=== PATIENT | female | born 1970 | race Caucasian/White ===

== ENCOUNTER 2017-05-19 00:40 | Inpatient (IN) | payer MEDICAID ==
[~2017-05-19] VITALS: Ht 160 cm; Wt 82.6 kg
[2017-05-19 00:51] VITALS: BP 127/43
--- NOTE | 2017-05-19 01:34 | NUR ---
PT TAKEN TO BED 3
--- NOTE | 2017-05-19 01:36 | NUR ---
46 Y/O F W/C/O PAIN /REDNESS TO L LOWER LEG X YESTERDAY. PT STATES POSIBLE SPIDER BITE. REDNESS NOTED. DENIES ANY FEVER BUT STATES HAS HAD CHILLS. ER MADE AWARE.
[2017-05-19] MEDS ORDERED: NACL 0.9% 1,000 ML IV ONE (01:55)
[2017-05-19] MEDS ORDERED: CLINDAMYCIN 900 MG in DEXTROSE 5% 100 ML IV ONE (01:55)
[2017-05-19] MEDS ORDERED: CLINDAMYCIN 900 MG/6 ML VIAL IV ONE (02:04)
[2017-05-19 02:14] LABS: BASOPHILS # (AUTO) 0.2 K/uL (0.00-0.22); EOSINOPHILS # (AUTO) 0.8 K/uL (0-0.4); EOSINOPHILS % (AUTO) 11.2 % (0.0-4.0); HEMATOCRIT 26.6 % (36-48); HEMOGLOBIN 8.1 g/dL (12.0-16.0); LYMPHOCYTES # (AUTO) 1.9 K/uL (2.5-16.5); LYMPHOCYTES % (AUTO) 25.8 % (20.5-51.1); MEAN CORPUSCULAR HEMOGLOBIN 21 pg (27-31); MEAN CORPUSCULAR HGB CONC 31 g/dL (33-37); MEAN CORPUSCULAR VOLUME 70 fL (80-94); MONOCYTES # (AUTO) 0.8 K/uL (0.8-1.0); MONOCYTES % (AUTO) 10.3 % (1.7-9.3); NEUTROPHILS # (AUTO) 3.7 K/uL (1.8-7.7); NEUTROPHILS % (AUTO) 49.7 % (42.2-75.2); PLATELET COUNT (AUTO) 272 K/uL (140-450); RED BLOOD CELL COUNT(AUTO) 3.82 MIL/uL (4.20-5.40); RED CELL DISTRIBUTION WIDTH 17.1 % (11.6-13.7); WHITE BLOOD COUNT (AUTO) 7.4 K/uL (4.8-10.8)
[2017-05-19 02:31] LABS: ALBUMIN 3.4 g/dL (3.4-5.0); ANION GAP 13.4 (8-16); CARBON DIOXIDE 26.1 mmol/L (21-32); CREATININE 0.7 mg/dL (0.6-1.3); POTASSIUM 3.5 mmol/L (3.5-5.1); TOTAL BILIRUBIN 0.3 mg/dL (0.0-1.0)
--- NOTE | 2017-05-19 02:35 | NUR ---
PT RESTING IN BED ASLEEP, NO S/S OF DISTRESS NOTED. AWATING FOR RESULTS.
[2017-05-19] MEDS: NACL 0.9% 1,000 ML IV SCH (03:51)
[2017-05-19] MEDS ORDERED: ACETAMINOPHEN 325 MG TAB PO PRN (03:55)
[2017-05-19] MEDS ORDERED: ONDANSETRON 4 MG/2 ML VIAL IVP PRN (03:55)
[2017-05-19] MEDS ORDERED: HYDROcodone/APAP 7.5/325 MG 1 TAB PO PRN (03:55)
[2017-05-19 04:00] VITALS: BP 115/62
--- NOTE | 2017-05-19 04:12 | NUR ---
PT TAKEN TO TELEMETRY VIA [facility]. NO S/S OF DISTRESS NOTED DURING TRANSFER.
--- NOTE | 2017-05-19 04:18 | NUR ---
REPORT GIVEN TO MIROSLAVA BABIN AT BEDSIDE.
--- NOTE | 2017-05-19 04:30 | NUR ---
RECEIVED PT FROM ER IN STABLE CONDITION. AAOX4 ON ROOM AIR, PT IS LETHARGIC AND SEDATED BUT STILL ANSWERS QUESTIONS. IV TO L HAND 20G PATENT AND INTACT INFUSING WELL. RESPIRATIONS EVEN AND UNLABORED, SKIN WARM AND DRY TO TOUCH, CELLULITIS ON L LEG, SMALL AREA OF REDNESS NOTED. INITIAL ASSESSMENT COMPLETED, PLAN OF CARE DISCUSSED WITH PT, ALL SAFETY PRECAUTIONS MET, CALL LIGHT WITHIN REACH, WILL CONTINUE TO MONITOR
[2017-05-19 04:38] LABS: CHOL/HDL RATIO 4.1 (1-4.5); FREE T4 (FREE THYROXINE) 0.87 ng/dL (0.76-1.46); MAGNESIUM 1.9 mg/dL (1.8-2.4); PHOSPHORUS 3.8 mg/dL (2.5-4.9); THYROID STIMULATING HORMONE 3.3 uIU/mL (0.34-3.74)
--- NOTE | 2017-05-19 04:45 | NUR ---
DR. RESENDIZ IN TO SEE PT, COMPUTERS ARE DOWN SO HE STATED NO ORDERS FOR NOW
--- NOTE | 2017-05-19 07:25 | NUR ---
REPORT GIVEN TO DAY NURSE FOR CONTINUITY OF CARE. PT IN STABLE CONDITION. IV PATENT AND INTACT, NO REDNESS OR SWELLING
--- NOTE | 2017-05-19 07:25 | NUR ---
RECIEVED REPORT FOR CONTINUITY OF CARE AT BEDSIDE FROM MANAGER WILLOW NURSE. PT IN BED WITH EYES CLOSED. RESP EVEN AND UNLABORED. NO ACUTE DISTRESS NOTED. IV SITE TO LEFT HAND WITH 20G FLUIDS NS @50CC/HR. PT WITH CELLULITIS TO LLE.WILL CONT TO MONITOR PT.
[2017-05-19 08:00] VITALS: BP 118/79
[2017-05-19] MEDS: LACTOBACILLUS RHAMNOSUS GG 1 EACH CAP PO SCH (08:54)
[2017-05-19] MEDS: DOCUSATE SODIUM 100 MG GELCAP PO SCH ×2 (08:54→21:00)
[2017-05-19] MEDS: ATORVASTATIN 20 MG TAB PO SCH (08:54)
--- NOTE | 2017-05-19 08:58 | NUR ---
ADMINISTERED SCHEDULED MEDICATION. PATIENT TOLERATED WELL. NO ACUTE DISTRESS. PT HAVING BREAKFAST.CALL LIGHT WITHIN REACH, WILL CONT TO MONITOR PT.
[2017-05-19 09:26] LABS: PROTHROMBIN TIME 9.3 secs (10.8-13.4)
--- NOTE | 2017-05-19 09:42 | NUR ---
PATIENT HAS BEEN SCREENED AND CATEGORIZED LOW NUTRITION RISK. PATIENT WILL BE SEEN WITHIN 7 DAYS OF ADMISSION. 05/25/[address]
--- NOTE | 2017-05-19 10:30 | NUR ---
PATIENT ALERT ABLE ANSWER QUESTIONS APPROPRIATELY. DROWSY BUT COHERENT. NO ACUTE DISTRESS. NO CO PAIN . CALL LIGHT WITHIN REACH, WILL CONT TO MONITOR PT.
--- NOTE | 2017-05-19 10:47 | NUR ---
PT SLEEPING. NO SIGNS OF DISTRESS. WILL CONTINUE TO MONITOR PT.
--- NOTE | 2017-05-19 11:02 | NUR ---
REMOVED STOCK PITCHER . PT RESTING COMFORTABLY . NO ACUTE DISTRESS NOTED. WILL CONT TO MONITOR PT.
--- NOTE | 2017-05-19 11:27 | NUR ---
CM NOTE PER SIGN LETTERER CAMPOS, SEND REVIEWS TO BOTH [facility] AND [facility]. INITIAL REVIEW FAXED TO [facility] [phone] PH# [phone] AND [phone] [place] PH# [phone].
[2017-05-19] MEDS ORDERED: FERROUS GLUCONATE 324 MG TAB PO SCH (12:00)
[2017-05-19] MEDS ORDERED: ASCORBIC ACID 500 MG TAB PO SCH (12:00)
[2017-05-19] MEDS: CLINDAMYCIN 600 MG in DEXTROSE 5% 50 ML IV SCH ×2 (12:44→21:42)
--- NOTE | 2017-05-19 12:45 | NUR ---
ADMINISTERED CLEOCIN AND SCHEDULED MEDICATION , PT TOLERATED WELL. PATIENT IN BED HAVING LUNCH. NO ACUTE DISTRESS NOTED. NO C/O PAIN . WILL CONT TO MONITOR PT.
--- NOTE | 2017-05-19 14:45 | NUR ---
PATIENT IN BED WITH EYES CLOSED EASILY AROUSABLE. RESPONDS APPROPRIATELY TO QUESTIONS. NO ACUTE DISTRESS. NO C/O PAIN OR DISCOMFORT. CALL LIGHT WITHIN REACH. WILL CONT TO MONITOR
[2017-05-19 16:00] VITALS: BP 118/63
--- NOTE | 2017-05-19 16:00 | NUR ---
GATHERED VITAL SIGNS. PT WITH EYES CLOSED BUT EASILY AWOKEN. RESPONDS APPROPRIATELY TO QUESTIONS. NO ACUTE DISTRESS NOTED. NO C/O PAIN . WILL CONT TO MONITOR PT.
--- NOTE | 2017-05-19 18:04 | NUR ---
PT RESTING QUIETLY IN BED. NO ACUTE DISTRESS NOTED. NO C/O PAIN . WILL CONT TO MONITOR PT.
--- NOTE | 2017-05-19 19:09 | NUR ---
ENDORSED REPORT TO GLASS WASHER NURSE AT BEDSIDE FOR CONTINUITY OF CARE.
--- NOTE | 2017-05-19 19:10 | NUR ---
RECD. RESTING IN BED, AWAKE, A/OX4. RESPIRATION EVEN AND UNLABORED. IV OF NS AT 50 ML/HR INFUSING, LEFT HAND G20, CONVERSING WITH VISITORS AT THE BEDSIDE. STILL WITH SLIGHT SWELLING AND REDNESS AT THE LOWER LEG BUT SIZE OF REDNESS IS DECREASING. PLAN OF CARE FOR THE SHIFT DISCUSSED. VERBALIZED UNDERSTANDING. DENIES PAIN 0/10.
--- NOTE | 2017-05-19 20:00 | NUR ---
Patient's Plan of Care was discussed and reviewed with IC DESIGNER CUSTOM: DEBBY
--- NOTE | 2017-05-19 21:00 | NUR ---
REFUSED COLACE, STATED NO PROBLEM WITH HAVING BM DAILY.
[2017-05-19] MEDS ORDERED: ZOLPIDEM 5 MG TAB PO SCH (23:35)
[2017-05-20] VITALS: BP 117/69
--- NOTE | 2017-05-20 00:19 | NUR ---
UNABLE TO SLEEP, MEDICATED WITH AMBIEN ORDERED.
[2017-05-20] MEDS: NACL 0.9% 1,000 ML IV SCH (00:20)
--- NOTE | 2017-05-20 01:20 | NUR ---
SLEEPING COMFORTABLY IN BED.
--- NOTE | 2017-05-20 04:00 | NUR ---
STILL SLEEPING COMFORTABLY.
[2017-05-20] MEDS: CLINDAMYCIN 600 MG in DEXTROSE 5% 50 ML IV SCH (04:43)
[2017-05-20 06:59] LABS: BASOPHILS # (AUTO) 0.1 K/uL (0.00-0.22); BASOPHILS % (AUTO) 1.9 % (0.0-2.0); EOSINOPHILS # (AUTO) 0.7 K/uL (0-0.4); EOSINOPHILS % (AUTO) 12.6 % (0.0-4.0); HEMATOCRIT 28.2 % (36-48); HEMOGLOBIN 8.6 g/dL (12.0-16.0); LYMPHOCYTES # (AUTO) 2.4 K/uL (2.5-16.5); LYMPHOCYTES % (AUTO) 41.6 % (20.5-51.1); MEAN CORPUSCULAR HEMOGLOBIN 21 pg (27-31); MEAN CORPUSCULAR HGB CONC 30 g/dL (33-37); MEAN CORPUSCULAR VOLUME 71 fL (80-94); MONOCYTES # (AUTO) 0.5 K/uL (0.8-1.0); MONOCYTES % (AUTO) 8.5 % (1.7-9.3); NEUTROPHILS % (AUTO) 35.4 % (42.2-75.2); PLATELET COUNT (AUTO) 248 K/uL (140-450); RED CELL DISTRIBUTION WIDTH 17.5 % (11.6-13.7); WHITE BLOOD COUNT (AUTO) 5.7 K/uL (4.8-10.8)
--- NOTE | 2017-05-20 07:00 | NUR ---
CONDITION REMAIN STABLE. WILL ENDORSE TO AM NURSE FOR CONTINUITY OF CARE.
[2017-05-20 07:10] LABS: ANION GAP 11.7 (8-16); CARBON DIOXIDE 25.3 mmol/L (21-32); CREATININE 0.6 mg/dL (0.6-1.3)
[2017-05-20 07:22] LABS: MAGNESIUM 1.8 mg/dL (1.8-2.4); PHOSPHORUS 3.6 mg/dL (2.5-4.9)
--- NOTE | 2017-05-20 07:30 | NUR ---
RECEIVED PT REPORT FROM MERCURY CRACKING TESTER NURSE. PT IS AAOX4, RESTING IN BED. RESPIRATION EVEN AND UNLABORED. DENIES PAIN AT THIS TIME. IV CATH NOTED TO THE LEFT HAND, 20G, NS AT 50 ML/HR, PATENT, INTACT, AND INFUSING WELL. LEFT LOWER LEG IS SWELLING AND REDNESS AT THE SITE CIRCLED BY MARKER. PLAN OF CARE DISCUSSED WITH PT. PT VERBALIZED UNDERSTANDING. WILL CONTINUE TO MONITOR.
[2017-05-20] MEDS ORDERED: FERROUS GLUCONATE 324 MG TAB PO SCH (08:00)
[2017-05-20] MEDS: ATORVASTATIN 20 MG TAB PO SCH (08:29)
[2017-05-20] MEDS: LACTOBACILLUS RHAMNOSUS GG 1 EACH CAP PO SCH (08:29)
[2017-05-20] MEDS: DOCUSATE SODIUM 100 MG GELCAP PO SCH (08:30)
--- NOTE | 2017-05-20 08:35 | NUR ---
MEDICATIONS GIVEN. PT IS COOPERATIVE. DENIES ANY PAIN AT THIS TIME. NO S/S OF DISTRESS NOTED.
[2017-05-20] MEDS ORDERED: IBUP-2213 PO (08:54)
[2017-05-20] MEDS ORDERED: DOCU-299 PO (08:54)
[2017-05-20] MEDS ORDERED: OMEP20TC12 PO (08:54)
[2017-05-20] MEDS ORDERED: FERR324T11 PO (08:54)
[2017-05-20] MEDS ORDERED: LACT10CA PO (08:54)
[2017-05-20] MEDS ORDERED: VITC500 PO (08:54)
[2017-05-20] MEDS ORDERED: CLIN300C5 PO (08:54)
[2017-05-20] MEDS ORDERED: ATOR20TA40 PO (08:54)
[2017-05-20] MEDS ORDERED: ASCORBIC ACID 500 MG TAB PO SCH (09:00)
--- NOTE | 2017-05-20 10:36 | NUR ---
CM NOTE CONCURRENT REVIEW AND DISCHARGE SUMMARY FAXED TO [facility] [phone] PH# [phone] AND TO [facility] [phone] [place] PH# [phone]. [facility] CARLI ATKINS INFORMED THAT THERE IS A DISCHARGE ORDER FOR PATIENT TODAY.
--- NOTE | 2017-05-20 12:00 | NUR ---
PT IS DISCHARGED PER MD ORDER. DISCHARGE INSTRUCTIONS AND MEDICATION TEACHING GIVEN. PT VERBALIZED UNDERSTANDING. IV DC'ED, TIP INTACT, PRESSURE APPLIED. PT DENIES PAIN, NAUSEA, AND VOMITING. PT STATED SWELLING ON THE LEFT LEG HAS GOTTEN A LOT BETTER BUT STILL FEEL LIKE SWELLING AND PRESSURE. INSTRUCT PT TO ELEVATED THE LEG AT HOME TO INCREASE VENOUS RETURN AND WARM COMPRESS TO INCREASE BLOOD CIRCULATION. PT LEFT IN STABLE CONDITION AND WITH ALL HER BELONGINGS. WALKED PT TO THE LOBBY.
[2017-05-20 15:41] LABS: FOLIC ACID 13.4 ng/mL (>3.0)
== END 2017-05-20 12:00 | disposition home or self-care (01) | DRG 383 ==
LOC: MED 00:40 → MTU 04:01
PROVIDERS: ADMIT Family Medicine; ATTEND Family Medicine
DX: L03.116 Cellulitis of left lower limb (principal); N17.0 Acute kidney failure with tubular necrosis; G92 Toxic encephalopathy; D50.9 Iron deficiency anemia, unspecified; I11.9 Hypertensive heart disease without heart failure; E11.9 Type 2 diabetes mellitus without complications; T43.621A Poisoning by amphetamines, accidental (unintentional), initial encounter; I42.9 Cardiomyopathy, unspecified; F17.210 Nicotine dependence, cigarettes, uncomplicated; E78.5 Hyperlipidemia, unspecified; F19.10 Other psychoactive substance abuse, uncomplicated; K21.9 Gastro-esophageal reflux disease without esophagitis; F15.90 Other stimulant use, unspecified, uncomplicated; J45.909 Unspecified asthma, uncomplicated; E66.9 Obesity, unspecified; Z68.32 Body mass index [BMI] 32.0-32.9, adult; Z91.041 Radiographic dye allergy status; Y92.89 Other specified places as the place of occurrence of the external cause
CPT/HCPCS: 36415; 71045; 76881; 80048; 80053; 82150; 82607; 82728; 82746; 83036; 83540; 83605; 83690; 83735; 83880; 84100; 84439; 84443; 84484; 85025; 85045; 85610; 85730; 87040; 87081; 93005; 96365; 99285; J3490; J7030; J7060; Q0092

== ENCOUNTER 2017-08-05 18:51 | Emergency (ER) | payer MEDICAID ==
[~2017-08-05] VITALS: Ht 162.6 cm; Wt 84.8 kg
[~2017-08-05 18:51] MED LIST: ATOR20TA40 PO; CLIN300C5 PO; DOCU-299 PO; FERR324T11 PO; IBUP-2213 PO; LACT10CA PO; OMEP20TC12 PO; VITC500 PO
[2017-08-05 18:56] VITALS: BP 141/79
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
--- NOTE | 2017-08-05 19:20 | NUR ---
MOVED TO ER BED 2
[2017-08-05] MEDS ORDERED: KETOROLAC 60 MG/2 ML VIAL IM ONE (19:55)
[2017-08-05 20:09] VITALS: BP 135/78
--- NOTE | 2017-08-05 20:09 | NUR ---
Patient discharged with v/s stable. Written and verbal after care instructions given and explained. Patient alert, oriented and verbalized understanding of instructions. Ambulatory with steady gait. All questions addressed prior to discharge. ID band removed. Patient advised to follow up with PMD. Rx of MOTRIN, CIPRO given. Patient educated on indication of medication including possible reaction and side effects. Opportunity to ask questions provided and answered.
== END 2017-08-05 20:09 | disposition home or self-care (01) ==
LOC: MED 18:51
DX: N39.0 Urinary tract infection, site not specified (principal); M54.6 Pain in thoracic spine; J45.909 Unspecified asthma, uncomplicated; F17.210 Nicotine dependence, cigarettes, uncomplicated; Z91.041 Radiographic dye allergy status; Z79.899 Other long term (current) drug therapy
CPT/HCPCS: 81002; 81025; 96372; 99283; J1885

== ENCOUNTER 2017-12-30 22:39 | Emergency (ER) | payer MEDICAID ==
[~2017-12-30] VITALS: Ht 162.6 cm; Wt 89.4 kg
[2017-12-30 22:46] VITALS: BP 115/70
[2017-12-30 22:48] VITALS: BP 115/70
--- NOTE | 2017-12-30 22:49 | NUR ---
TO LOBBY, A/W JIGNA SALDANA, CB ERMD NOTED
--- NOTE | 2017-12-30 23:57 | NUR ---
47/F CAME IN W C/O LEFT FOOT AND LEG PAIN X 2 DAYS. LEFT FOOT AND LEG NOTED WITH REDNESS, +EDEMA, +TENDERNESS, SKIN IS INTACT, +CMS TO LLE. PT REPORTS " MIGHT BE A BUG BITE". DENIES PMH
--- NOTE | 2017-12-30 23:57 | NUR ---
TO ER BED 8
[2017-12-31] MEDS ORDERED: KETOROLAC 30 MG/ML VIAL IM ONE (00:15)
[2017-12-31] MEDS ORDERED: CLINDAMYCIN 600 MG/4 ML VIAL IM ONE (00:15)
--- NOTE | 2017-12-31 00:15 | NUR ---
UA DONE, HCG NEG
== END 2017-12-31 00:55 | disposition home or self-care (01) ==
LOC: MED 22:39
DX: L03.116 Cellulitis of left lower limb (principal); J45.909 Unspecified asthma, uncomplicated; F17.210 Nicotine dependence, cigarettes, uncomplicated; Z88.8 Allergy status to other drugs, medicaments and biological substances; Z79.899 Other long term (current) drug therapy
CPT/HCPCS: 81002; 81025; 96372; 99284; J1885; J3490

== ENCOUNTER 2018-11-16 03:10 | Emergency (ER) | payer MEDICAID ==
[~2018-11-16] VITALS: Ht 162.6 cm; Wt 94.8 kg
[2018-11-16 03:16] VITALS: BP 127/68
--- NOTE | 2018-11-16 03:26 | NUR ---
PT AMBULATED TO WITH STEADY GAIT TO PROVIDE URINE SAMPLE. INSTRUCTED TO GO TO BED 5 FINISHED.
[2018-11-16] MEDS ORDERED: KETOROLAC 60 MG/2 ML VIAL IM ONE (03:35)
--- NOTE | 2018-11-16 03:35 | NUR ---
48 Y/O FEMALE PRESENTS TO ED, C/O LLQ ACHING, PRESSURE PAIN 8/10. PT STATES PAIN STARTED 5 DAYS AGO. C/O NAUSEA FOR THE PAST 2 DAYS. PT HAS ACTIVE BOWEL SOUNDS ON ALL QUADRANTS. ABDOMEN IS SOFT AND NO DISTENTION. PT C/O OF PRESSURED LLQ PAIN DURING BOWEL MOVEMENTS AND VOIDING. DENIES ANY FOUL ODOR OR BURNING SENSATION WHILE VOIDING. PT HAS HX OF ASTHMA. PT VSS. DR KOENIG AWARE. WILL CONTINUE TO MONITOR.
--- NOTE | 2018-11-16 04:14 | NUR ---
Ultrasound at bedside.
--- NOTE | 2018-11-16 05:02 | NUR ---
Note undone in EDM - 11/16/18 at 0508 by MED2 PT DISCHARGED WITH PAPERWORK. RX HYDROCHLOROTHIAZIDE AND EQUATE SALINE 0.65% NASAL SPRAY. EDUCATED PT REGARDING MEDICATIONS AND SIDE EFFECTS. EDUCATED PT REGARDING DISCHARGE DIAGNOSIS. PT VERBALIZED UNDERSTANDING OF TEACHING. TOLD PT TO FOLLOW UP WITH PCP AND WHEN TO RETURN TO ED. PT VSS. ALL QUESTIONS ANSWERED.
[2018-11-16] MEDS ORDERED: AZITHROMYCIN 250 MG TAB PO ONE (05:10)
[2018-11-16] MEDS ORDERED: cefTRIAXone 250 MG in LIDOCAINE MPF 1% - 5 mL VIAL 0.9 ML IM ONE (05:10)
[2018-11-16 05:35] VITALS: BP 121/66
--- NOTE | 2018-11-16 05:35 | NUR ---
PT DISCHARGED WITH PAPERWORK. RX DOXYCYLINE, MOTRIN, TRAMADOL. EDUCATED PT REGARDING MEDICATIONS AND SIDE EFFECTS. EDUCATED PT REGARDING DISCHARGE DIAGNOSIS. PT VERBALIZED UNDERSTANDING OF TEACHING. TOLD PT TO FOLLOW UP WITH PCP AND WHEN TO RETURN TO ED. PT VSS. ALL QUESTIONS ANSWERED.
== END 2018-11-16 05:35 | disposition home or self-care (01) ==
LOC: MED 03:10
DX: N70.11 Chronic salpingitis (principal); R11.2 Nausea with vomiting, unspecified; J45.909 Unspecified asthma, uncomplicated; Z79.899 Other long term (current) drug therapy
CPT/HCPCS: 76856; 81002; 81025; 96372; 99284; J0696; J1885; J2001; Q0092

== ENCOUNTER 2018-11-19 20:52 | Emergency (ER) | payer MEDICAID ==
[~2018-11-19] VITALS: Ht 162.6 cm; Wt 93.0 kg
[2018-11-19 20:58] VITALS: BP 132/76
--- NOTE | 2018-11-19 21:06 | NUR ---
PT AMBULATED TO THE RESTROOM AND THEN TO BED #10
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
--- NOTE | 2018-11-19 21:25 | NUR ---
Patient discharged with v/s stable. Written and verbal after care instructions given and explained. Patient alert, oriented and verbalized understanding of instructions. Ambulatory with steady gait. All questions addressed prior to discharge. ID band removed. Patient advised to follow up with PMD. Rx of doxcycline given. Patient educated on indication of medication including possible reaction and side effects. Opportunity to ask questions provided and answered.
== END 2018-11-19 21:25 | disposition home or self-care (01) ==
LOC: MED 20:52
DX: N73.9 Female pelvic inflammatory disease, unspecified (principal); F17.200 Nicotine dependence, unspecified, uncomplicated; J45.909 Unspecified asthma, uncomplicated; Z76.0 Encounter for issue of repeat prescription; Z98.890 Other specified postprocedural states; Z79.899 Other long term (current) drug therapy; Z88.8 Allergy status to other drugs, medicaments and biological substances
CPT/HCPCS: 99283

== ENCOUNTER 2019-11-24 13:14 | Emergency (ER) | payer MEDICAID ==
[~2019-11-24] VITALS: Ht 162.6 cm; Wt 93.0 kg
[2019-11-24 13:27] VITALS: BP 128/63
--- NOTE | 2019-11-24 13:30 | NUR ---
Nemesio irene in EDM - 11/24/19 at 1359 by [email or web address] 49/F BIB SELF C/O LEFT THIGH PAIN, REDNESS & SWELLING S/P POSSIBLE SPIDER BITE X YESTERDAY. MED HX: ASTHMA.
--- NOTE | 2019-11-24 13:34 | NUR ---
PT AMB TO BED 12
--- NOTE | 2019-11-24 13:58 | NUR ---
49/F C/O BURNING LEFT LATERAL THIGH PAIN, REDNESS & SWELLING S/P BUG BITE/STING X YESTERDAY. +PRURITIS. NO SOB/CP. STATES MILD NAUSEA TODAY. MED HX: ASTHMA
--- NOTE | 2019-11-24 14:38 | NUR ---
DR TONEY AT BEDSIDE
[2019-11-24] MEDS ORDERED: diphenhydrAMINE 50 MG/ML VIAL IVP ONE (14:40)
[2019-11-24] MEDS ORDERED: ceFAZolin 1,000 MG VIAL ONE (14:58)
[2019-11-24 15:04] LABS: BASOPHILS % (AUTO) 0.4 % (0.0-2.0); EOSINOPHILS # (AUTO) 0.4 K/uL (0-0.4); EOSINOPHILS % (AUTO) 6.5 % (0.0-4.0); HEMATOCRIT 26.3 % (36-48); HEMOGLOBIN 8.1 g/dL (12.0-16.0); LYMPHOCYTES # (AUTO) 1.3 K/uL (2.5-16.5); LYMPHOCYTES % (AUTO) 20.6 % (20.5-51.1); MEAN CORPUSCULAR HEMOGLOBIN 21 pg (27-31); MEAN CORPUSCULAR HGB CONC 31 g/dL (33-37); MEAN CORPUSCULAR VOLUME 69.4 fL (80-94); MONOCYTES # (AUTO) 0.6 K/uL (0.8-1.0); MONOCYTES % (AUTO) 9.2 % (1.7-9.3); NEUTROPHILS % (AUTO) 63.3 % (42.2-75.2); PLATELET COUNT (AUTO) 240 K/uL (140-450); RED BLOOD CELL COUNT(AUTO) 3.79 MIL/uL (4.20-5.40); RED CELL DISTRIBUTION WIDTH 18.3 % (11.6-13.7); WHITE BLOOD COUNT (AUTO) 6.4 K/uL (4.8-10.8)
[2019-11-24 15:20] LABS: ALBUMIN 3.5 g/dL (3.4-5.0); ANION GAP 12.2 (8-16); CARBON DIOXIDE 26.4 mmol/L (21-32); CREATININE 0.8 mg/dL (0.6-1.3); POTASSIUM 3.6 mmol/L (3.5-5.1); TOTAL BILIRUBIN 0.3 mg/dL (0.0-1.0)
[2019-11-24 17:18] VITALS: BP 116/75
== END 2019-11-24 17:18 | disposition home or self-care (01) ==
LOC: MED 13:14
DX: S60.562A Insect bite (nonvenomous) of left hand, initial encounter (principal); D64.9 Anemia, unspecified; L03.114 Cellulitis of left upper limb; J45.909 Unspecified asthma, uncomplicated; N83.299 Other ovarian cyst, unspecified side; Z88.6 Allergy status to analgesic agent; Z79.899 Other long term (current) drug therapy
CPT/HCPCS: 36415; 80053; 85025; 96365; 96375; 99284; J0690; J1200

== ENCOUNTER 2020-02-23 10:27 | Emergency (ER) | payer MEDICAID ==
[~2020-02-23] VITALS: Ht 160 cm; Wt 94.3 kg
[2020-02-23 10:34] VITALS: BP 151/81
--- NOTE | 2020-02-23 10:34 | NUR ---
Patient ambulated to bed 12. RN evaluating patient at bedside.
--- NOTE | 2020-02-23 10:41 | NUR ---
49 y/o female A&OX4 c/o left eye discomfort and discharge X3days. Pt states she has used visine eyedrops with no relief. Pt states left eye is itchy. Denies vision loss. Perrla + in both eyes, brisk, 6mm. Pt also states right ear is itchy and has affected her hearing. Denies PMH, RX Allergies to iodine.
--- NOTE | 2020-02-23 10:52 | NUR ---
Dr. Evans at the pt bedside for evaluation.
[2020-02-23 11:07] VITALS: BP 151/81
--- NOTE | 2020-02-23 11:07 | NUR ---
Patient discharged with v/s stable. Written and verbal after care instructions given and explained. Patient alert, oriented and verbalized understanding of instructions. Ambulatory with steady gait. All questions addressed prior to discharge. ID band removed. Patient advised to follow up with PMD. Rx of cortisporin oral suspension 4drops QID in right ear, and gentamycin 0.3% ophthalmic ey drops 1 ribbon TID PRN given. Patient educated on indication of medication including possible reaction and side effects. Opportunity to ask questions provided and answered.
== END 2020-02-23 11:07 | disposition home or self-care (01) ==
LOC: MED 10:27
DX: H10.32 Unspecified acute conjunctivitis, left eye (principal); H66.91 Otitis media, unspecified, right ear; F17.200 Nicotine dependence, unspecified, uncomplicated; J45.909 Unspecified asthma, uncomplicated; Z71.6 Tobacco abuse counseling; Z79.899 Other long term (current) drug therapy; Z88.8 Allergy status to other drugs, medicaments and biological substances
CPT/HCPCS: 99283

== ENCOUNTER 2020-07-14 01:38 | Emergency (ER) | payer MEDICAID ==
[~2020-07-14] VITALS: Ht 162.6 cm; Wt 81.6 kg
[~2020-07-14 01:38] MED LIST changes: -CLIN300C5 PO; +CLIN300C7 PO
[2020-07-14 01:45] VITALS: BP 150/79
--- NOTE | 2020-07-14 01:45 | NUR ---
TO BED AMBULATORY
--- NOTE | 2020-07-14 02:00 | NUR ---
C/O LT LEG PAIN X 3 DAYS. PT SAYS, "I GOT BITE BY A BUG 3 DAYS AGO AND IT STARTED GETTING SWOLLEN AND PAINFUL TODAY." LT LEG SHOWS REDNESS, SWELLING, TENDERNESS TO TOUCH. CMS INTACT, PEDAL PULSES PRESENT BLE. SKIN IS HOT TO TOUCH ON LT LEG. A&OX4. STEADY GAIT. ALLERGIES: IODINE PMH: ASTHMA.
[2020-07-14] MEDS ORDERED: cephALEXin 500 MG CAP PO ONE (02:40)
[2020-07-14] MEDS ORDERED: CEPH500C16 PO (02:59)
[2020-07-14] MEDS ORDERED: CIPR7.5S OT (03:11)
[2020-07-14 03:19] VITALS: BP 140/76
--- NOTE | 2020-07-14 03:19 | NUR ---
Patient discharged with v/s stable. Written and verbal after care instructions given and explained. Patient alert, oriented and verbalized understanding of instructions. Ambulatory with steady gait. All questions addressed prior to discharge. ID band removed. Patient advised to follow up with PMD. Rx of KEFLEX, AND CIPRODEX given. Patient educated on indication of medication including possible reaction and side effects. Opportunity to ask questions provided and answered.
== END 2020-07-14 03:19 | disposition home or self-care (01) ==
LOC: MED 01:38
DX: L03.116 Cellulitis of left lower limb (principal); H60.92 Unspecified otitis externa, left ear; J45.909 Unspecified asthma, uncomplicated; Z88.8 Allergy status to other drugs, medicaments and biological substances; Z79.899 Other long term (current) drug therapy; W57.XXXA Bitten or stung by nonvenomous insect and other nonvenomous arthropods, initial encounter; Y93.89 Activity, other specified; Y92.89 Other specified places as the place of occurrence of the external cause; Y99.8 Other external cause status
CPT/HCPCS: 82948; 99283

== ENCOUNTER 2020-08-16 01:38 | Emergency (ER) | payer MEDICAID ==
[~2020-08-16] VITALS: Ht 162.6 cm; Wt 93.0 kg
[~2020-08-16 01:38] MED LIST changes: +CEPH500C16 PO; +CIPR7.5S OT
[2020-08-16 01:40] VITALS: BP 155/80
--- NOTE | 2020-08-16 01:46 | NUR ---
AMBULATED TO BED 3
--- NOTE | 2020-08-16 01:58 | NUR ---
49 Y/O FEMALE C/O COUGH X2DAYS WITH CONGESTION. PT STATES "I FEEL WHEEZING, TIGHTNESS, AND MY THROAT CLOSING UP. LUNG SOUNDS CRACKELS TO BILAT UPPER LOBES. DENIES ANY PAIN. MEDHX: ASTHMA ALLERGIES: IODINE
--- NOTE | 2020-08-16 02:09 | NUR ---
ERMD AT BEDSIDE EXAMINING PT
--- NOTE | 2020-08-16 02:21 | NUR ---
MAURO SWAB COLLECTED AND SENT TO LAB. HANDED TO KATELYN CHEUNG
[2020-08-16 03:01] VITALS: BP 155/80
--- NOTE | 2020-08-16 03:01 | NUR ---
Patient discharged with v/s stable. Written and verbal after care instructions given and explained. Patient verbalized understanding. Ambulatory with steady gait. All questions addressed prior to discharge. Advised to follow up with PMD.
== END 2020-08-16 03:01 | disposition home or self-care (01) ==
LOC: MED 01:38
DX: R05 Cough (principal); Z20.822 Contact with and (suspected) exposure to COVID-19; R09.81 Nasal congestion; J45.909 Unspecified asthma, uncomplicated
CPT/HCPCS: 99283

== ENCOUNTER 2020-08-20 03:15 | Emergency (ER) | payer MEDICAID ==
[~2020-08-20] VITALS: Ht 162.6 cm; Wt 92.5 kg
[2020-08-20 03:27] VITALS: BP 137/67
--- NOTE | 2020-08-20 03:27 | NUR ---
TO BED AMBULATORY
--- NOTE | 2020-08-20 03:35 | NUR ---
COVERING PRIMARY RN FOR LUNCH RELIEF. SEE COMPLETE ASSESSMENT.
[2020-08-20] MEDS ORDERED: IBUPROFEN 800 MG TAB PO ONE (03:45)
[2020-08-20] MEDS ORDERED: cefTRIAXone 1,000 MG in LIDOCAINE MPF 1% 2.1 ML IM ONE (03:45)
[2020-08-20] MEDS ORDERED: CEPH-588 PO (03:50)
[2020-08-20] MEDS ORDERED: IBUP-2218 PO (03:50)
[2020-08-20] MEDS ORDERED: cefTRIAXone 1,000 MG VIAL ONE (03:57)
[2020-08-20] MEDS ORDERED: LIDOCAINE MPF 1% 5 ML ONE (03:57)
[2020-08-20 04:36] VITALS: BP 137/67
--- NOTE | 2020-08-20 04:36 | NUR ---
Patient discharged with v/s stable. Written and verbal after care instructions given and explained. Patient alert, oriented and verbalized understanding of instructions. Ambulatory with steady gait. All questions addressed prior to discharge. ID band removed. Patient advised to follow up with PMD. Rx of IBUPROFEN, AND KEFLEX given. Patient educated on indication of medication including possible reaction and side effects. Opportunity to ask questions provided and answered.
== END 2020-08-20 04:36 | disposition home or self-care (01) ==
LOC: MED 03:15
DX: L03.115 Cellulitis of right lower limb (principal); L03.116 Cellulitis of left lower limb; J45.909 Unspecified asthma, uncomplicated; Z88.8 Allergy status to other drugs, medicaments and biological substances; Z79.899 Other long term (current) drug therapy
CPT/HCPCS: 96372; 99283; J0696; J2001

== ENCOUNTER 2020-12-05 08:12 | Emergency (ER) | payer MEDICAID ==
[~2020-12-05 08:12] MED LIST changes: +CEPH-588 PO; -CEPH500C16 PO; -CLIN300C7 PO; +CLIN300C73 PO; -IBUP-2213 PO; +IBUP-2218 PO; +OMEP-278 PO; -OMEP20TC12 PO
== END 2020-12-05 08:40 | disposition left against medical advice (07) ==
LOC: MED 08:12
DX: Z53.21 Procedure and treatment not carried out due to patient leaving prior to being seen by health care provider (principal)

== ENCOUNTER 2021-01-07 22:14 | Emergency (ER) | payer MEDICAID ==
[~2021-01-07] VITALS: Ht 160 cm; Wt 93.0 kg
[2021-01-07 22:31] VITALS: BP 143/90
--- NOTE | 2021-01-07 22:33 | NUR ---
TO LOBBY A/W BED AMBULATORY
--- NOTE | 2021-01-07 22:34 | NUR ---
JULIO CESAR ND EXAMINED BY ERMMarilyn
[2021-01-07 22:40] VITALS: BP 143/90
== END 2021-01-07 22:40 | disposition home or self-care (01) ==
LOC: MED 22:14
DX: T63.441A Toxic effect of venom of bees, accidental (unintentional), initial encounter (principal); M79.89 Other specified soft tissue disorders; Y92.89 Other specified places as the place of occurrence of the external cause
CPT/HCPCS: 99282

== ENCOUNTER 2021-03-19 21:55 | Emergency (ER) | payer MEDICAID ==
--- NOTE | 2021-03-19 22:31 | NUR ---
CALLED IN LOBBY NO ANSWER. CALLED CELL PHONE, NUMBER IS BROTHERS- HE IS NOT WITH PT.
--- NOTE | 2021-03-19 22:43 | NUR ---
PATIENT LEFT WITHOUT BEING SEEN BY DR. MONTOYA. NO FURTHER CARE PROVIDED FOR PATIENT.
--- NOTE | 2021-03-19 22:43 | NUR ---
CALLED PT IN LOBBY AND OUTSIDE NO ANSWER.
[2021-03-20] MEDS ORDERED: ACET-10509 PO (02:35)
[2021-03-20] MEDS ORDERED: SULF-59 PO (02:35)
== END 2021-03-19 22:31 | disposition left against medical advice (07) ==
LOC: MED 21:55
DX: Z53.21 Procedure and treatment not carried out due to patient leaving prior to being seen by health care provider (principal)

== ENCOUNTER 2021-03-20 00:39 | Emergency (ER) | payer MEDICAID ==
[~2021-03-20] VITALS: Ht 160 cm; Wt 93.0 kg
[2021-03-20 00:43] VITALS: BP 147/102
--- NOTE | 2021-03-20 01:12 | NUR ---
Pt ambulated to bed 10.
--- NOTE | 2021-03-20 01:39 | NUR ---
SEE PT ASSESSMENT FOR MORE INFO.
[2021-03-20] MEDS ORDERED: SULFAMETH/TRIMETH DS 800/160MG 1 TAB PO ONE (02:20)
[2021-03-20] MEDS ORDERED: KETOROLAC 30 MG/ML VIAL IM ONE (02:20)
[2021-03-20] MEDS ORDERED: ACET-10509 PO (02:35)
[2021-03-20] MEDS ORDERED: SULF-59 PO (02:35)
[2021-03-20 03:17] VITALS: BP 114/67
--- NOTE | 2021-03-20 03:17 | NUR ---
Patient discharged with v/s stable. Written and verbal after care instructions given and explained. Patient alert, oriented and verbalized understanding of instructions. Ambulatory with steady gait. All questions addressed prior to discharge. ID band removed. Patient advised to follow up with PMD. Rx of BACTRIM, ACETAMINOPHEN given. Patient educated on indication of medication including possible reaction and side effects. Opportunity to ask questions provided and answered.
== END 2021-03-20 03:17 | disposition home or self-care (01) ==
LOC: MED 00:39
DX: L03.116 Cellulitis of left lower limb (principal); J45.909 Unspecified asthma, uncomplicated; F17.210 Nicotine dependence, cigarettes, uncomplicated; Z79.899 Other long term (current) drug therapy; Z79.2 Long term (current) use of antibiotics; Z79.1 Long term (current) use of non-steroidal anti-inflammatories (NSAID); Z88.8 Allergy status to other drugs, medicaments and biological substances
CPT/HCPCS: 96372; 99283; J1885

== ENCOUNTER 2022-01-10 00:08 | Emergency (ER) | payer MEDICAID ==
[~2022-01-10] VITALS: Ht 160 cm; Wt 93.0 kg
[~2022-01-10 00:08] MED LIST changes: +ACET-10509 PO; +SULF-59 PO
[2022-01-10 00:10] VITALS: BP 135/75
--- NOTE | 2022-01-10 00:13 | NUR ---
TO LOBBY A/W BED AMBULATORY
--- NOTE | 2022-01-10 01:15 | NUR ---
PT CALLED IN LOBBY AND OUTSIDE WITH NO ANSWER.
--- NOTE | 2022-01-10 01:27 | NUR ---
PT CALLED ON PERSONAL PHONE, CALL WENT STRAIGHT TO VOICEMAIL.
--- NOTE | 2022-01-10 01:28 | NUR ---
PT CALLED IN LOBBY AND OUTSIDE WITH NO ANSWER. PT LWBS BY DR. WRIGHT.
== END 2022-01-10 01:28 | disposition left against medical advice (07) ==
LOC: MED 00:08
DX: M79.661 Pain in right lower leg (principal); Z53.21 Procedure and treatment not carried out due to patient leaving prior to being seen by health care provider

== ENCOUNTER 2022-09-01 14:55 | Emergency (ER) | payer MEDICAID ==
[~2022-09-01] VITALS: Ht 162.6 cm; Wt 92.1 kg
--- NOTE | 2022-09-01 16:03 | NUR ---
NO ANSWER WHEN CALLED FROM [facility]
[2022-09-01 16:05] VITALS: BP 142/73
--- NOTE | 2022-09-01 16:14 | NUR ---
TRIAGE COMPLETE. BS: 120, LAST TETANUS VACC: UNK
[2022-09-01] MEDS ORDERED: ceFAZolin 1,000 MG VIAL IM ONE (18:45)
[2022-09-01] MEDS ORDERED: ceFAZolin 1,000 MG VIAL ONE ×2 (19:54→19:55)
--- NOTE | 2022-09-01 20:04 | NUR ---
NO ANSWER WHEN CALLED TO MEDICATE PT
--- NOTE | 2022-09-01 20:23 | NUR ---
CALLED NUMBER ON FILE, NOT ACTIVE NUMBER FOR PATIENT. PT NOT FOUND IN LOBBY OR OUTSIDE. PT LWBS
== END 2022-09-01 20:23 | disposition left against medical advice (07) ==
LOC: MED 14:55
DX: M79.662 Pain in left lower leg (principal); Z53.21 Procedure and treatment not carried out due to patient leaving prior to being seen by health care provider
CPT/HCPCS: 82948; 99281; J0690